=== PATIENT | female | born 1950 | race Caucasian/White ===

== ENCOUNTER 2021-07-30 03:42 | Inpatient (IN) | payer MEDICARE, OTHER ==
[~2021-07-30] VITALS: Ht 160 cm; Wt 53.9 kg
[~2021-07-30 03:42] MED LIST: ASPIR 8181 MG PO; ATORVASTATIN CA20 MG PO; ATROVENT-HFA12.9 GM INH; CYCLOBENZAPRINE10 MG PO; CYMBALTA60 MG PO; ELIQUIS 5 MG TAB5 MG PO; ELIQUIS5 MG PO; ENTRESTO 24 MG1 EACH PO; FLONASE 0.05% N16 GM; FUROSEMIDE20 MG PO; IBU800 MG PO; IMDUR ER TAB 3030 MG PO; IPRAT-ALBUT 0.5-3 ML INH; LASIX40 MG PO; MACROBID 100 M100 MG PO; MEDROL DOSEPAK 24 MG PO; PROVENTIL HFA6.7 GM INH; TOPROL XL25 MG PO; ZANTAC150 MG PO
[2021-07-30 04:50] LABS: BUN/CREATININE RATIO 17 (0-10)
[2021-07-30 04:58] LABS: HEMOGLOBIN 14.8 gm/dl (12.3-15.3); RED BLOOD COUNT 4.86 M/UL (4.00-5.10); WHITE BLOOD COUNT 4.5 K/UL (4.5-11.0)
[2021-07-30] MEDS ORDERED: MELATONIN5 M2 PO (16:24)
[2021-07-30] MEDS ORDERED: SUBOXONE 8 MG-1 EACH SL (16:25)
[2021-07-30] MEDS ORDERED: ZESTRIL20 MG PO (16:26)
[2021-07-30] MEDS ORDERED: LASIX40 MG PO (16:27)
[2021-07-31 04:37] LABS: HEMOGLOBIN 13.9 gm/dl (12.3-15.3); RED BLOOD COUNT 4.58 M/UL (4.00-5.10); WHITE BLOOD COUNT 5.3 K/UL (4.5-11.0)
[2021-08-01] MEDS ORDERED: DECADRON6 MG PO (10:50)
[2021-08-01] MEDS ORDERED: TYLENOL325 MG PO (10:50)
[2021-08-01] MEDS ORDERED: ADVAIR 250-501 EACH INH (10:50)
[2021-08-01 11:53] LABS: HEMOGLOBIN 14.9 gm/dl (12.3-15.3); RED BLOOD COUNT 4.95 M/UL (4.00-5.10)
[2021-08-01 11:57] LABS: WHITE BLOOD COUNT 10.4 K/UL (4.5-11.0)
--- NOTE | 2021-08-01 12:58 | NUR ---
PATIENT ROOM AIR SAT 88%
[2021-08-02 08:14] LABS: ANTISTREPTOLYSIN O AB 107.7 IU/mL (0.0-200.0); COMPLEMENT C3, SERUM 116 mg/dL (82-167); COMPLEMENT C4, SERUM 22 mg/dL (12-38)
[2021-08-02 12:14] LABS: HBSAG SCREEN Negative (Negative); HEP B CORE AB, TOT Positive (Negative); HEP C VIRUS AB >11.0 (0.0-0.9)
[2021-08-02 15:09] LABS: ANTI-DSDNA ANTIBODIES <1 IU/mL (0-9)
[2021-08-02 18:12] LABS: A/G RATIO 0.9 (0.7-1.7); ALBUMIN 3.2 g/dL (2.9-4.4); ALPHA-1-GLOBULIN 0.3 g/dL (0.0-0.4); BETA GLOBULIN 0.9 g/dL (0.7-1.3); GAMMA GLOBULIN 1.6 g/dL (0.4-1.8); GLOBULIN, TOTAL 3.9 g/dL (2.2-3.9); IMMUNOGLOBULIN A, QN, SERUM 259 mg/dL (87-352); IMMUNOGLOBULIN G, QN, SERUM 1602 mg/dL (586-1602); IMMUNOGLOBULIN M, QN, SERUM 145 mg/dL (26-217); M-SPIKE Not Observed g/dL (Not Observed); PROTEIN, TOTAL, SERUM 7.1 g/dL (6.0-8.5)
[2021-08-04 08:10] LABS: ATYPICAL PANCA <1:20 titer (Neg:<1:20); CYTOPLASMIC (C-ANCA) <1:20 titer (Neg:<1:20); PERINUCLEAR (P-ANCA) <1:20 titer (Neg:<1:20)
== END 2021-08-01 15:08 | disposition home health service (06) | DRG 177 ==
LOC: ER1 03:42 → CDU 09:04 → M/S 07-31 14:31
PROVIDERS: Emergency Medicine; Internal Medicine Nephrology; ADMIT Internal Medicine
PROC: 8E0ZXY6 Isolation (ICD-10-PCS; principal; 2021-07-30)
PROC: XW033E5 Introduction of Remdesivir Anti-infective into Peripheral Vein, Percutaneous Approach, New Technology Group 5 (ICD-10-PCS; 2021-07-30)
PROC: 3E0333Z Introduction of Anti-inflammatory into Peripheral Vein, Percutaneous Approach (ICD-10-PCS; 2021-07-31)
PROC: 3E02340 Introduction of Influenza Vaccine into Muscle, Percutaneous Approach (ICD-10-PCS; 2021-07-31)
DX: U07.1 COVID-19 (principal); J12.82 Pneumonia due to coronavirus disease 2019; J96.21 Acute and chronic respiratory failure with hypoxia; J44.0 Chronic obstructive pulmonary disease with (acute) lower respiratory infection; I50.22 Chronic systolic (congestive) heart failure; N17.9 Acute kidney failure, unspecified; E87.1 Hypo-osmolality and hyponatremia; I11.0 Hypertensive heart disease with heart failure; I49.5 Sick sinus syndrome; F41.9 Anxiety disorder, unspecified; E78.5 Hyperlipidemia, unspecified; E87.6 Hypokalemia; I25.10 Atherosclerotic heart disease of native coronary artery without angina pectoris; M54.9 Dorsalgia, unspecified; G89.29 Other chronic pain; E83.42 Hypomagnesemia; Z95.1 Presence of aortocoronary bypass graft; Z90.49 Acquired absence of other specified parts of digestive tract; Z90.89 Acquired absence of other organs; Z95.0 Presence of cardiac pacemaker; Z88.8 Allergy status to other drugs, medicaments and biological substances; Z79.899 Other long term (current) drug therapy; Z79.82 Long term (current) use of aspirin
CPT/HCPCS: 36600; 71045; 72100; 80053; 80307; 81001; 82140; 82550; 82553; 82570; 82784; 82803; 82962; 83036; 83520; 83540; 83550; 83605; 83690; 83735; 83874; 83880; 83883; 84100; 84132; 84133; 84155; 84156; 84165; 84300; 84439; 84443; 84484; 85025; 85027; 85610; 85652; 85730; 86038; 86060; 86140; 86160; 86162; 86225; 86256; 86334; 86704; 86706; 86708; 86803; 87040; 87086; 87340; 93005; 94640; 94664; 94760; 96374; 96375; 97110-GP-CQ; 97116-GP-CQ; 97162; 97166; 97535; 99285; G0378; G0480; J1100; J1650; J2270; J2405; J2930; J3475; J7030; Q0177; U0002

== ENCOUNTER 2021-09-18 02:30 | Emergency (ER) | payer MEDICARE, OTHER ==
[~2021-09-18 02:30] MED LIST changes: +ADVAIR 250-501 EACH INH; +DECADRON6 MG PO; +MELATONIN5 M2 PO; +SUBOXONE 8 MG-1 EACH SL; +TYLENOL325 MG PO; +ZESTRIL20 MG PO
[2021-09-18 03:02] LABS: HEMOGLOBIN 13.2 gm/dl (12.3-15.3); RED BLOOD COUNT 3.95 M/UL (4.00-5.10); WHITE BLOOD COUNT 7.1 K/UL (4.5-11.0)
[2021-09-18 03:24] LABS: BUN/CREATININE RATIO 21 (0-10)
== END 2021-09-18 11:32 | disposition home or self-care (01) ==
LOC: ER1 02:30
PROVIDERS: Family Medicine
DX: J44.9 Chronic obstructive pulmonary disease, unspecified (principal); I11.0 Hypertensive heart disease with heart failure; I50.20 Unspecified systolic (congestive) heart failure; I25.2 Old myocardial infarction; F17.200 Nicotine dependence, unspecified, uncomplicated; Z95.1 Presence of aortocoronary bypass graft
CPT/HCPCS: 36600; 71045; 80053; 81001; 82550; 82553; 82803; 83605; 84484; 85025; 85610; 87040; 87086; 93005; 94640; 94664; 96374; 99285; J2930

== ENCOUNTER 2022-08-03 08:02 | Observation (INO) | payer MEDICARE, OTHER ==
[~2022-08-03] VITALS: Ht 160 cm; Wt 52.2 kg
[~2022-08-03 08:02] MED LIST changes: -ASPIR 8181 MG PO; +ASPIRIN CHEWABL81 MG PO; -PROVENTIL HFA6.7 GM INH; +PROVENTIL HFA6.7 GM PO
[2022-08-03 09:40] LABS: HEMOGLOBIN 13.3 gm/dl (12.3-15.3); RED BLOOD COUNT 4.08 M/UL (4.00-5.10); WHITE BLOOD COUNT 6.1 K/UL (4.5-11.0)
[2022-08-03] MEDS ORDERED: PRILOSEC OTC20 MG PO (13:32)
[2022-08-03] MEDS ORDERED: ASPIRIN 325MG325 MG PO (13:32)
[2022-08-03] MEDS ORDERED: MULTI-VITAMIN1 EACH PO (13:32)
[2022-08-03] MEDS ORDERED: ADVIL200 MG PO (13:34)
[2022-08-04 04:48] LABS: HEMOGLOBIN 11.8 gm/dl (12.3-15.3); WHITE BLOOD COUNT 6.9 K/UL (4.5-11.0)
[2022-08-04 04:49] LABS: RED BLOOD COUNT 3.61 M/UL (4.00-5.10)
[2022-08-05 03:25] LABS: HEMOGLOBIN 12.9 gm/dl (12.3-15.3); RED BLOOD COUNT 3.93 M/UL (4.00-5.10)
[2022-08-05 03:29] LABS: WHITE BLOOD COUNT 9.8 K/UL (4.5-11.0)
[2022-08-06 07:38] LABS: HEMOGLOBIN 12.1 gm/dl (12.3-15.3); RED BLOOD COUNT 3.78 M/UL (4.00-5.10); WHITE BLOOD COUNT 9.6 K/UL (4.5-11.0)
[2022-08-07 02:58] LABS: HEMOGLOBIN 12.2 gm/dl (12.3-15.3); RED BLOOD COUNT 3.76 M/UL (4.00-5.10)
--- NOTE | 2022-08-07 15:32 | NUR ---
was informed by JOSE M bolivar of patient able to ambulates from bed to the window and back. notified dr. shoemaker of this and she will cont to discharge patient as planned.
[2022-08-07] MEDS ORDERED: BROVANA15 MCG/2 M NEB (17:27)
[2022-08-07] MEDS ORDERED: VIBRAMYCIN50 MG/5 ML PO (17:27)
[2022-08-07] MEDS ORDERED: TIZANIDINE HCL4 MG PO (17:27)
[2022-08-07] MEDS ORDERED: IPRAT-ALBUT 0.5-3 ML NEB (17:27)
[2022-08-07] MEDS ORDERED: AMLODIPINE BESYL5 MG PO (17:27)
[2022-08-07] MEDS ORDERED: ISOSORBIDE MONO30 MG PO (17:27)
[2022-08-07] MEDS ORDERED: NICOTINE PATCH1 EAC1 TD (17:27)
[2022-08-07] MEDS ORDERED: TRAMADOL HCL50 MG PO (17:45)
[2022-08-07] MEDS ORDERED: ALPRAZOLAM0.5 MG PO (17:49)
== END 2022-08-07 23:11 | disposition home or self-care (01) ==
LOC: ER1 08:02 → M/S 13:46 → CDU 13:46 → M/S 14:16
PROVIDERS: Internal Medicine; Physician Assistant Medical; Student in an Organized Health Care Education/Training Program; ADMIT Internal Medicine Infectious Disease
DX: R07.89 Other chest pain (principal); I10 Essential (primary) hypertension; J44.9 Chronic obstructive pulmonary disease, unspecified; I25.10 Atherosclerotic heart disease of native coronary artery without angina pectoris; I25.5 Ischemic cardiomyopathy; I48.91 Unspecified atrial fibrillation; E78.5 Hyperlipidemia, unspecified; I49.5 Sick sinus syndrome; F17.210 Nicotine dependence, cigarettes, uncomplicated; F41.9 Anxiety disorder, unspecified; F32.A Depression, unspecified; Z95.1 Presence of aortocoronary bypass graft; Z88.1 Allergy status to other antibiotic agents; Z79.82 Long term (current) use of aspirin; Z79.899 Other long term (current) drug therapy
CPT/HCPCS: ECHO; 36415; 36600; 71045; 80048; 80053; 80061; 82550; 82553; 82803; 83735; 84484; 85025; 85027; 85379; 93005; 93306; 94640; 94760; 96374; 96375; 96376; 97110-GP-CQ; 97116; 97116-GP-CQ; 97162; 97530; 99285; G0378; J1100; J7070; Q9967